=== PATIENT | male | born 1990 | race African-American/Black ===

== ENCOUNTER 2016-09-14 17:04 | Emergency (ER) | payer OTHER ==
[~2016-09-14] VITALS: Ht 182.9 cm; Wt 74.8 kg
[2016-09-14 17:05] VITALS: BP 127/65
== END 2016-09-14 19:10 | disposition home or self-care (01) ==
LOC: ER 17:06
DX: S46.912A Strain of unspecified muscle, fascia and tendon at shoulder and upper arm level, left arm, initial encounter (principal); V53.6XXA Passenger in pick-up truck or van injured in collision with car, pick-up truck or van in traffic accident, initial encounter; Y93.89 Activity, other specified; Y92.488 Other paved roadways as the place of occurrence of the external cause; Y99.8 Other external cause status
CPT/HCPCS: 99283; A4606; Z7610